=== PATIENT | male | born 1960 | race Caucasian/White ===

== ENCOUNTER 2021-08-30 21:35 | Emergency (ER) | payer OTHER ==
[~2021-08-30] VITALS: Ht 175.3 cm; Wt 104.7 kg
[2021-08-30] MEDS ORDERED: ATOR40TA75 (21:50)
[2021-08-30] MEDS ORDERED: METF500T13 (21:50)
[2021-08-30] MEDS ORDERED: LISI2.5T9 (21:50)
[2021-08-30] MEDS ORDERED: METO1TAB87 (21:50)
[2021-08-30] MEDS ORDERED: GLIM4TAB5 (21:50)
[2021-08-30 23:15] LABS: BASO % 0.4 % (0.0-1.0); EOS # 0.2 10^3/uL (0.0-0.5); EOS % 2.2 % (0.0-3.0); HEMATOCRIT 44.2 % (42.0-52.0); HEMOGLOBIN 15.2 g/dl (13.5-17.5); LYMPH # 1.9 10^3/uL (1.5-5.0); LYMPH % 19.8 % (24.0-44.0); MEAN CORPUSCULAR HEMOGLOBIN 30.9 pg (27.0-33.0); MEAN CORPUSCULAR HGB CONC 34.4 g/dl (32.0-36.5); MEAN CORPUSCULAR VOLUME 89.8 fl (80.0-96.0); MONO # 0.7 10^3/uL (0.0-0.8); NEUTROPHILS # 6.6 10^3/uL (1.5-8.5); NEUTROPHILS % 70.3 % (36.0-66.0); PLATELET COUNT, AUTOMATED 185 10^3/uL (150-450); RED BLOOD COUNT 4.92 10^6/uL (4.30-6.10); WHITE BLOOD COUNT 9.4 10^3/uL (4.0-10.0)
[2021-08-30 23:17] LABS: VENOUS BASE EXCESS -3.5 (-2.0-2.0); VENOUS HCO3 21.5 MEQ/L (23.0-27.0); VENOUS O2 SATURATION 98.9 % (60.0-80.0); VENOUS PARTIAL PRESSURE CO2 38.8 mmHg (38.0-50.0); VENOUS PARTIAL PRESSURE O2 174.9 mmHg (30.0-50.0); VENOUS PH 7.361 UNITS (7.330-7.430); VENOUS STANDARD HCO3 21.6 MEQ/L; VENOUS TOTAL CO2 22.7 MEQ/L (24.0-28.0)
[2021-08-31 00:21] LABS: ACETONE/KETONE 1.47 MG/DL (<2.81); CALCIUM LEVEL 8.6 MG/DL (8.8-10.2); CREATININE FOR GFR 1.62 MG/DL (0.70-1.30); GLOMERULAR FILTRATION RATE 46.3 (>49); POTASSIUM SERUM 4.6 MEQ/L (3.5-5.1)
[2021-08-31] MEDS ORDERED: ACETAMINOPHEN 500 MG TAB PO ONE (01:15)
[2021-08-31 02:10] VITALS: BP 157/81
[2021-08-31] MEDS ORDERED: FLOM0.4C39 PO (02:19)
[2021-08-31] MEDS ORDERED: PERC5TAB12 PO (02:19)
[2021-08-31] MEDS ORDERED: TAMSULOSIN 0.4 MG CAP PO ONE (02:25)
[2021-08-31] MEDS ORDERED: OXYCODONE/APAP 5MG/325MG(HOME DOSE PACK) PO ONE (02:25)
== END 2021-08-31 02:33 | disposition home or self-care (01) ==
LOC: M ED 21:35
DX: N13.2 Hydronephrosis with renal and ureteral calculous obstruction (principal); E78.5 Hyperlipidemia, unspecified; E11.9 Type 2 diabetes mellitus without complications; I10 Essential (primary) hypertension; N18.9 Chronic kidney disease, unspecified; Z79.811 Long term (current) use of aromatase inhibitors; Z79.4 Long term (current) use of insulin; Z79.899 Other long term (current) drug therapy

== ENCOUNTER → 2022-03-03 | Outpatient (REF) | payer OTHER ==
[~2022-03-03] MED LIST: ATOR40TA75; FLOM0.4C39 PO; GLIM4TAB5; LISI2.5T9; METF500T13; METO1TAB87; PERC5TAB12 PO
[2022-03-03 18:31] LABS: CREATININE, URINE 109.5 MG/DL
[2022-03-03 18:32] LABS: MALB URINE SIEMENS < 3.0 MG/DL; MAU/CREAT RATIO 2.7 MCG/MG (0.0-30.0)
== END ==
LOC: M LAB REF 16:50
PROVIDERS: ATTEND Internal Medicine Nephrology
DX: E11.22 Type 2 diabetes mellitus with diabetic chronic kidney disease (principal)

== ENCOUNTER → 2024-10-06 | Outpatient (REF) | payer OTHER ==
[~2024-10-06] MED LIST changes: -FLOM0.4C39 PO; +TAMS-18 PO
[2024-10-06 17:45] LABS: BACTERIA, URINE AUTO NEGATIVE (NEGATIVE); CALCIUM OXALATE CRYSTALS LARGE; MUCUS, URINE SMALL (NEGATIVE); RBC, URINE AUTO 26 /HPF (0-3); SQUAMOUS EPITHELIAL CELL UR AU 0 /HPF (0-6); WBC, URINE AUTO 1 /HPF (0-3)
== END ==
LOC: M LAB REF 16:49
PROVIDERS: ATTEND Nurse Practitioner Family
DX: R31.9 Hematuria, unspecified (principal)